=== PATIENT | male | born 1985 | race Caucasian/White ===

== ENCOUNTER 2022-07-22 21:35 | Emergency (ER) | payer OTHER ==
[~2022-07-22] VITALS: Ht 170.2 cm; Wt 68.0 kg
[2022-07-22] MEDS ORDERED: CLOT12CR TP (22:16)
[2022-07-22] MEDS ORDERED: TAMS-3 PO (22:16)
[2022-07-22] MEDS ORDERED: TRAM50TA2 PO (22:16)
[2022-07-22] MEDS ORDERED: LACO200T2 PO (22:16)
[2022-07-22] MEDS ORDERED: CARBAMIDE PEROXIDE LEFT EAR (22:16)
[2022-07-22] MEDS ORDERED: MAGN296S70 PO (22:16)
[2022-07-22] MEDS ORDERED: DOCU-141 PO (22:16)
[2022-07-22] MEDS ORDERED: ACET-73 PO (22:16)
[2022-07-22] MEDS ORDERED: IBUP-1953 PO (22:16)
[2022-07-22] MEDS ORDERED: LAMO200T2 PO (22:16)
[2022-07-22] MEDS ORDERED: ESCI10TA PO (22:16)
[2022-07-22] MEDS ORDERED: MAGN400O6 PO (22:16)
[2022-07-22] MEDS ORDERED: LEVE1000 PO (22:16)
[2022-07-22] MEDS ORDERED: BISA10SU61 RC (22:16)
[2022-07-22] MEDS ORDERED: [UNRECOGNIZED DRUG - OTHER] PO (22:16)
--- NOTE | 2022-07-22 22:18 | NUR ---
After being triaged, patient was placed back in the waiting room due to no beds available in the ER at this time.
--- NOTE | 2022-07-22 23:00 | NUR ---
Patient placed in room 3A at this time.
--- NOTE | 2022-07-22 23:02 | NUR ---
Dr Hooper into eval patient.
[2022-07-22 23:28] LABS: HEMATOCRIT 45.2 % (36.7-47.1); MEAN CORPUSCULAR HEMOGLOBIN 30.5 uug (23.8-33.4); MEAN CORPUSCULAR VOLUME 89.9 fL (73.0-96.2); PLATELET COUNT (AUTO) 244 K/uL (152-348)
[2022-07-22 23:47] LABS: CREATININE 0.9 mg/dL (0.6-1.3); MAGNESIUM 2.1 mg/dL (1.8-2.4); POTASSIUM 3.9 mmol/L (3.5-5.1)
--- NOTE | 2022-07-23 00:59 | NUR ---
Patient discharged to home in stable condition. Written and verbal after care instructions given. Patient verbalizes understanding of instructions. Stressed follow up or return to ER for worsening s/s. Patient walked out with steady gait.
[2022-07-23 02:15] VITALS: BP 112/78
== END 2022-07-23 01:02 | disposition home or self-care (01) ==
LOC: ER 21:42
DX: R56.9 Unspecified convulsions (principal); S09.90XA Unspecified injury of head, initial encounter; W18.39XA Other fall on same level, initial encounter; Y92.239 Unspecified place in hospital as the place of occurrence of the external cause; Z87.820 Personal history of traumatic brain injury; R47.01 Aphasia; G81.91 Hemiplegia, unspecified affecting right dominant side
CPT/HCPCS: 36415; 70450; 83735; 85025; A4663